=== PATIENT | female | born 1985 | race Two or more races ===

== ENCOUNTER 2019-12-06 04:19 | Emergency (ER) | payer SELFPAY ==
[~2019-12-06] VITALS: Ht 167.6 cm; Wt 79.0 kg
[2019-12-06 04:21] VITALS: BP 142/83
[2019-12-06] MEDS ORDERED: ACETAMINOPHEN 500 MG TABLET PO ONE (05:00)
[2019-12-06] MEDS ORDERED: ONDANSETRON ODT 4 MG PO ONE (05:00)
[2019-12-06] MEDS ORDERED: ACETAMINOPHEN 500 MG TABLET ONE (05:08)
[2019-12-06] MEDS ORDERED: ONDANSETRON ODT 4 MG ONE (05:08)
[2019-12-06 05:13] LABS: BASOPHILS # (AUTO) 0.02 x10^3/uL (0-0.1); BASOPHILS % (AUTO) 0 % (0-1); EOSINOPHILS # (AUTO) 0.03 x10^3/uL (0-0.4); EOSINOPHILS % (AUTO) 0 % (1-7); LYMPHOCYTES # (AUTO) 2.22 x10^3/uL (1-3.4); LYMPHOCYTES % (AUTO) 34 % (22-44); MD NO; MEAN CORPUSCULAR HEMOGLOBIN 29.7 pg (27.0-34.8); MEAN CORPUSCULAR HGB CONC 32.6 g/dL (32.4-35.8); MEAN CORPUSCULAR VOLUME 91.2 fL (80-100); MEAN PLATELET VOLUME 8.7 fL (7.4-10.4); MONOCYTES # (AUTO) 0.46 x10^3/uL (0.2-0.8); MONOCYTES % (AUTO) 7 % (2-9); NEUTROPHILS # (AUTO) 3.76 x10^3/uL (1.8-6.8); NEUTROPHILS % (AUTO) 58 % (42-75); PLATELET COUNT 219 x10^3/uL (130-400); RED BLOOD COUNT 4.68 x10^6/uL (3.82-5.3); RED CELL DISTRIBUTION WIDTH 13.2 % (9.6-15.2)
[2019-12-06 05:22] LABS: ALANINE AMINOTRANSFERASE 38 U/L (12-78); ALBUMIN 3.8 g/dL (3.4-5.0); ANION GAP 6 mmol/L (5-15); CALCIUM 8.9 mg/dL (8.5-10.1); CHLORIDE 110 mmol/L (98-107)
--- NOTE | 2019-12-06 05:24 | NUR ---
MEDICATED AND THEN TO US. PT REPORTS [facility] 09/22/19, G 3 P 2, 2 POSITIVE HOME PREG TEST, STATES 0200AM NOTED SLIGHT AMOUNT OF BLOOD IN TISSUE AFTER VOIDING, DENIES CRAMPING OR PAIN.
[2019-12-06 05:28] LABS: MICROSCOPIC INDICATED
[2019-12-06 05:39] LABS: ALKALINE PHOSPHATASE 73 U/L (45-117); BILIRUBIN,TOTAL 0.5 mg/dL (0.2-1.0); TOTAL PROTEIN 7.7 g/dL (6.4-8.2)
== END 2019-12-06 08:21 | disposition home or self-care (01) ==
LOC: ED 05:55
DX: O26.891 Other specified pregnancy related conditions, first trimester (principal); O46.91 Antepartum hemorrhage, unspecified, first trimester; R11.0 Nausea; M54.5 Low back pain; Z3A.00 Weeks of gestation of pregnancy not specified
CPT/HCPCS: 36415; 76801; 80053; 81001; 84702; 85025; 87086; 99284; Q0162